=== PATIENT | female | born 1990 | race Caucasian/White ===

== ENCOUNTER → 2019-05-16 08:12 | Outpatient (CLI) | payer OTHER, SELFPAY ==
--- NOTE | ~2019-05-16 | US_ITS ---
US breast RT limited DATE: 05/16/2019 08:56 INDICATION: 12:00 right breast lump. Patient is 10.5 weeks t TECHNIQUE: Targeted ultrasound at the area of clinical complaint of right breast lump at 12:00 6 cm f rom the nipple COMPARISON: None FINDINGS: No suspicious mass, shadowing or any cyst or other significant sonographic finding is noted at 12:00 6 cm from the nipple at the area of clinical complaint. IMPRESSION: BI-RADS Category 1: Negative Recommendation: Routine mammographic screening beginning at age 40 unless there are earlier breast sy mptoms or physical findings Reviewed, dictated and finalized at [facility]. Reviewed, dictated and finalized at location [facility]. IMPRESSION: BI-RADS Category 1: Negative Recommendation: Routine mammographic screening beginning at age 40 unless there are earlier breast symptoms or physical findings
== END ==
PROVIDERS: Visit Provider Advanced Practice Midwife
DX: N63.10 Unspecified lump in the right breast, unspecified quadrant (principal)
CPT/HCPCS: 76642

== ENCOUNTER 2019-07-23 14:02 | Outpatient (CLI) | payer OTHER, SELFPAY ==
[2019-07-23 14:37] VITALS: BP 129/74; PULSE 115; RESP 16; TEMP 36.8
== END 2019-07-23 15:06 | disposition home or self-care (01) ==
LOC: ANHOBPP 14:47 → ANHOBOP 15:05
PROVIDERS: PCP Internal Medicine; Visit Provider Obstetrics & Gynecology
DX: O42.912 Preterm premature rupture of membranes, unspecified as to length of time between rupture and onset of labor, second trimester (principal); Z3A.20 20 weeks gestation of pregnancy
CPT/HCPCS: 99199

== ENCOUNTER 2019-08-25 11:39 | Observation (INO) | payer OTHER, SELFPAY ==
--- NOTE | ~2019-08-25 | US_ITS ---
EXAMINATION: US OB limited DATE: 08/25/2019 14:18 INDICATION: Vaginal bleeding during late second trimester of . TECHNIQUE: Real-time ultrasound of the pelvis was performed. The interpreting radiologist was not pre sent for the study. COMPARISON: None. FINDINGS: There is a single living fetus in vertex presentation. The placenta is anterior and not low-lying. N o evident subchorionic hematoma. heart rate is 152 beats per minute (bpm). The amniotic fluid v olume is subjectively normal. IMPRESSION: 1. Single living fetus in vertex presentation with heart rate of 152 bpm. 2. Normal anterior placenta with no evident subchorionic hematoma. Reviewed, dictated and finalized at location [facility]. IMPRESSION: 1. Single living fetus in vertex presentation with heart rate of 152 bpm . 2. Normal anterior placenta with no evident subchorionic hematoma.
--- NOTE | 2019-08-25 11:39 | OBADM ---
This patient, Do Jeong, admitted to the OB room OB Post 113 for observation. Patient/family oriented to hospital policies and general routines including ID bracelet, bed and alarms, visiting hours, pain management, procedures, bathroom and other care routines, personal items, smoking policy, room service/diet, and visiting hours. Patient/Family are encouraged to report perceived risks to care and to ask questions if they do not understand what they are told or what they should do.
[2019-08-25 12:05] VITALS: TEMP 37.4
[2019-08-25 12:15] VITALS: BMI 42.1
[2019-08-25 12:16] VITALS: BP 121/70; PULSE 94
[2019-08-25 12:31] VITALS: BP 126/73; PULSE 93
[2019-08-25 13:32] VITALS: BP 143/80; PULSE 89
[2019-08-25 13:46] VITALS: BP 148/82; PULSE 98
[2019-08-25] MEDS: NIFEdipine 10 MG CAPSULE PO ×2 (13:49→16:47)
[2019-08-25 15:53] VITALS: BP 124/72; PULSE 100
[2019-08-25 16:06] LABS: Add Urine Microscopic? YES; Appearance Urine Clear (Clear); Bacteria Urine 2+ /hpf; Bilirubin Urine Negative (Negative); Blood Urine Negative (Negative); Color Urine Straw (Yellow); Glucose Urine UA Negative (Negative); Ketones Urine 1+ mg/dL (Negative); Leukocyte Esterase Ur Negative LEU/UL (NEGATIVE); Nitrate Urine Negative (Negative); Protein Urine Negative (Negative); Specific Grav Ur 1.009 (1.001-1.035); Squamous Epithelial Cell Urine Occasional /hpf (Few); Urobilinogen Urine Negative mg/dL (<2.0); WBC Urine 0-3 /hpf (0-3)
--- NOTE | 2019-09-19 07:28 | P.PNOB_ITS ---
OB - Triage/Final Diagnosis Visit Information Date of evaluation: 08/25/19 Evaluation Laboratory results: Laboratory Tests 08/25/19 15:51 Urine Color Straw Urine Appearance Clear Urine pH 7.0 Ur Specific [place] 1.009 Urine Protein Negative Urine Glucose (UA) Negative Urine Ketones 1+ H Ur Blood (Man) Negative Urine Nitrate Negative Urine Bilirubin Negative Urine Urobilinogen Negative Ur Leukocyte Esterase Negative Urine WBC 0-3 Ur Squamous Epith Cells Occasional Urine Bacteria 2+ H Hyaline Casts 1-2 Final Diagnosis (1) Vaginal bleeding during , antepartum: Code(s): O46.90 - Antepartum hemorrhage, unspecified, unspecified trimester Status: Acute
== END 2019-08-25 18:20 | disposition home or self-care (01) ==
PROVIDERS: Admitting Provider Obstetrics & Gynecology; PCP Internal Medicine; Visit Provider Obstetrics & Gynecology
DX: O46.92 Antepartum hemorrhage, unspecified, second trimester (principal); Z3A.24 24 weeks gestation of pregnancy
CPT/HCPCS: 76815; 81001; 87086; A9270; G0378; G0379

== ENCOUNTER 2019-09-13 20:39 | Observation (INO) | payer OTHER, SELFPAY ==
[2019-09-13] VITALS (9 sets, daily range): BP systolic 136–141; BP diastolic 71–85; PULSE 100–120; O2SAT 99; BMI 42.1
--- NOTE | ~2019-09-13 | US_ITS ---
EXAMINATION: US OB limited DATE: 09/13/2019 22:16 INDICATION: Vaginal bleeding during second trimester TECHNIQUE: Real-time ultrasound of the pelvis was performed. The interpreting radiologist was not pre sent for the study. COMPARISON: 08/25/2019 FINDINGS: There is a single living fetus in vertex presentation. The placenta is anterior and 11.2 cm from the internal cervical os. There is a hypoechoic area along the inferior margin of the placenta which has an appearance suggestive of a venous marquez. cardiac activity and movement are no simone. heart rate is 159 beats per minute (bpm). The amniotic fluid index is 15.5 cm which is nor mal. IMPRESSION: 1. Single living fetus in vertex presentation. 2. Normal amniotic fluid index. 3. Hypoechoic area along the inferior margin of the placenta, likely a venous marquez. Reviewed, dictated and finalized at location [facility]. IMPRESSION: 1. Single living fetus in vertex presentation. 2. Normal amniotic fluid index. 3. Hypoechoic area along the inferior margin of the placenta, likely a venous l heron.
[2019-09-13 22:10] LABS: Basophils Percent Auto 0.2 % (0.2-1.2); Eosinophils Absolute Auto 0.1 K/mm3 (0-0.3); Eosinophils Percent Auto 0.7 % (0-4.4); Hematocrit 36.3 % (37.0-47.0); Hemoglobin 12.5 g/dL (12.0-15.0); Immature Granulocyte Absolute 0.14 K/mm3 (0.00-0.031); Immature Granulocyte Percent A 1.1 % (0-0.5); Lymphocytes Absolute Auto 1.86 K/mm3 (0.9-3.2); Lymphocytes Percent Auto 14.9 % (18.3-44.2); Mean Corpuscular HGB Conc 34.4 g/dl (32-36); Mean Corpuscular Hemoglobin 30.8 pg (26-34); Mean Corpuscular Volume 89.4 fl (80-100); Mean Platelet Volume 9.6 fl (7.4-10.4); Monocytes Absolute Auto 0.9 K/mm3 (0.1-0.6); Monocytes Percent Auto 7.1 % (2.6-8.5); Neutrophils Absolute Auto 9.5 K/mm3 (1.3-6.7); Platelet Count Result 308 k/mm3 (150-375); Red Blood Count 4.06 M/mm3 (4.2-5.4); Red Cell Distribution Width 13.6 % (11.5-14.5); White Blood Count 12.5 K/mm3 (4.5-10.0)
[2019-09-13 22:14] LABS: Add Urine Microscopic? YES; Appearance Urine Clear (Clear); Bacteria Urine Trace /hpf; Bilirubin Urine Negative (Negative); Blood Urine 1+ (Negative); Color Urine Colorless (Yellow); Glucose Urine UA Negative (Negative); Ketones Urine Negative (Negative); Leukocyte Esterase Ur Negative LEU/UL (NEGATIVE); Nitrate Urine Negative (Negative); Protein Urine Negative (Negative); Squamous Epithelial Cell Urine Occasional /hpf (Few); Urobilinogen Urine Negative mg/dL (<2.0); WBC Urine 0-3 /hpf (0-3)
[2019-09-13 22:17] LABS: Specific Grav Ur 1.004 (1.001-1.035)
[2019-09-13 22:22] LABS: Alanine Aminotransferase 37 U/L (4-35); Albumin Level 3.4 g/dL (3.5-5.1); Alkaline Phosphatase 79 U/L (38-126); Anion Gap 11.4 mmol/L (7-16); Aspartate Amino Transferase 29 U/L (14-36); Bilirubin,Total 0.2 mg/dL (0.2-1.3); Blood Urea Nitrogen 7 mg/dL (7-17); Calcium 8.8 mg/dL (8.4-10.2); Carbon Dioxide 23 mmol/L (22-30); Chloride 104 mmol/L (98-107); Estimated Glomerular Filt Rate > 60; Glucose 128 mg/dL (65-105); Potassium 3.4 mmol/L (3.4-5.0); Sodium 135 mmol/L (137-145); Uric Acid 4.3 mg/dL (2.5-7.5)
[2019-09-13 22:23] LABS: Creatinine Urine 12.1 mg/dL; Total Protein Urine Random 13 mg/dL
[2019-09-13] MEDS: BETAMETHASONE SOD PHOS/ACETATE 30 MG/5 ML VIAL 12 MG IM (22:30)
[2019-09-13 22:42] LABS: Fetal Fibronectin Negative
--- NOTE | 2019-09-16 21:45 | PM.OBTRLD ---
OB - Triage/Final Diagnosis Evaluation Laboratory results: Laboratory Tests 09/13/19 09/13/19 09/13/19 21:39 21:39 21:39 WBC 12.5 H RBC 4.06 L Hgb 12.5 Hct 36.3 L MCV 89.4 MCH 30.8 MCHC 34.4 RDW 13.6 Plt Count 308 MPV 9.6 Immature Gran % (Auto) 1.1 H Neut % (Auto) 76.0 H Lymph % (Auto) 14.9 L [place] % (Auto) 7.1 Eos % (Auto) 0.7 Baso % (Auto) 0.2 Lymph # (Auto) 1.86 [place] # (Auto) 0.9 H Eos # (Auto) 0.1 Baso # (Auto) 0.0 Abs Immat Gran (auto) 0.14 H Absolute Neuts (auto) 9.5 H Absolute Nucleated RBC 0.0 Nucleated RBC % 0.0 Sodium Potassium Chloride Carbon Dioxide Anion Gap BUN Creatinine Estim Creat Clear Calc Estimated GFR Glucose Uric Acid Calcium Total Bilirubin AST ALT Alkaline Phosphatase Total Protein Albumin Urine Color Colorless Urine Appearance Clear Urine pH 7.0 Ur Specific [place] 1.004 Urine Protein Negative Urine Glucose (UA) Negative Urine Ketones Negative Ur Blood (Man) 1+ H Urine Nitrate Negative Urine Bilirubin Negative Urine Urobilinogen Negative Ur Leukocyte Esterase Negative Urine WBC 0-3 Ur Squamous Epith Cells Occasional Urine Bacteria Trace U Random Total Protein 13 Urine Creatinine 12.1 Fibronectin 09/13/19 09/13/19 21:39 21:45 WBC RBC Hgb Hct MCV MCH MCHC RDW Plt Count MPV Immature Gran % (Auto) Neut % (Auto) Lymph % (Auto) [place] % (Auto) Eos % (Auto) Baso % (Auto) Lymph # (Auto) [place] # (Auto) Eos # (Auto) Baso # (Auto) Abs Immat Gran (auto) Absolute Neuts (auto) Absolute Nucleated RBC Nucleated RBC % Sodium 135 L Potassium 3.4 Chloride 104 Carbon Dioxide 23 Anion Gap 11.4 BUN 7 Creatinine 0.40 L Estim Creat Clear Calc Not Reportable Estimated GFR > 60 Glucose 128 H Uric Acid 4.3 Calcium 8.8 Total Bilirubin 0.2 AST 29 ALT 37 H Alkaline Phosphatase 79 Total Protein 6.0 L Albumin 3.4 L Urine Color Urine Appearance Urine pH Ur Specific [place] Urine Protein Urine Glucose (UA) Urine Ketones Ur Blood (Man) Urine Nitrate Urine Bilirubin Urine Urobilinogen Ur Leukocyte Esterase Urine WBC Ur Squamous Epith Cells Urine Bacteria U Random Total Protein Urine Creatinine Fibronectin Negative Final Diagnosis (1) Vaginal bleeding during , antepartum: Code(s): O46.90 - Antepartum hemorrhage, unspecified, unspecified trimester Status: Acute
== END 2019-09-13 23:00 | disposition home or self-care (01) ==
PROVIDERS: Advanced Practice Midwife; Admitting Provider Obstetrics & Gynecology; PCP Internal Medicine; Visit Provider Obstetrics & Gynecology
DX: O46.92 Antepartum hemorrhage, unspecified, second trimester (principal); Z3A.27 27 weeks gestation of pregnancy
CPT/HCPCS: 36415; 76815; 80053; 81001; 82570; 82731; 84156; 84550; 85025; 87086; 96372; G0378; G0379; J0702

== ENCOUNTER 2019-09-14 21:55 | Outpatient (CLI) | payer OTHER, SELFPAY ==
[2019-09-14] MEDS: BETAMETHASONE SOD PHOS/ACETATE 30 MG/5 ML VIAL 12 MG IM (22:15)
== END 2019-09-14 22:20 | disposition home or self-care (01) ==
LOC: ANHOBOP 22:00 → ANHLDR 22:03
PROVIDERS: Family Provider Obstetrics & Gynecology; PCP Internal Medicine; Visit Provider Obstetrics & Gynecology
DX: Z34.90 Encounter for supervision of normal pregnancy, unspecified, unspecified trimester (principal); Z3A.00 Weeks of gestation of pregnancy not specified
CPT/HCPCS: 96372; 99199; J0702

== ENCOUNTER 2019-10-22 20:04 | Observation (INO) | payer OTHER, SELFPAY ==
[2019-10-22] VITALS (42 sets, daily range): BP systolic 101–116; BP diastolic 62–63; PULSE 86–113; TEMP 36.4; O2SAT 97–100
--- NOTE | 2019-10-22 20:28 | OBADM ---
This patient, Do Jeong, admitted to the OB room OB Post 117 for observation. Patient/family oriented to hospital policies and general routines including ID bracelet, bed and alarms, visiting hours, pain management, procedures, bathroom and other care routines, personal items, smoking policy, room service/diet, and visiting hours. Patient/Family are encouraged to report perceived risks to care and to ask questions if they do not understand what they are told or what they should do.
--- NOTE | 2019-11-13 08:15 | PM.OBTRLD ---
OB - Triage/Final Diagnosis Final Diagnosis (1) Vaginal bleeding during , antepartum: Code(s): O46.90 - Antepartum hemorrhage, unspecified, unspecified trimester Status: Acute
== END 2019-10-23 00:30 | disposition home or self-care (01) ==
PROVIDERS: Admitting Provider Obstetrics & Gynecology; PCP Internal Medicine; Visit Provider Obstetrics & Gynecology
DX: O46.93 Antepartum hemorrhage, unspecified, third trimester (principal); Z3A.33 33 weeks gestation of pregnancy
CPT/HCPCS: G0378; G0379

== ENCOUNTER 2019-10-23 16:59 | Observation (INO) | payer OTHER, SELFPAY ==
[2019-10-23] VITALS (8 sets, daily range): BP systolic 97–137; BP diastolic 76–92; PULSE 89–104; RESP 18; TEMP 36.7
[2019-10-23 18:13] LABS: Basophils Percent Auto 0.2 % (0.2-1.2); Eosinophils Absolute Auto 0.1 K/mm3 (0-0.3); Eosinophils Percent Auto 0.7 % (0-4.4); Hematocrit 36.7 % (37.0-47.0); Immature Granulocyte Absolute 0.08 K/mm3 (0.00-0.031); Immature Granulocyte Percent A 0.7 % (0-0.5); Lymphocytes Absolute Auto 1.95 K/mm3 (0.9-3.2); Lymphocytes Percent Auto 16.2 % (18.3-44.2); Mean Corpuscular HGB Conc 35.4 g/dl (32-36); Mean Corpuscular Hemoglobin 30.7 pg (26-34); Mean Corpuscular Volume 86.8 fl (80-100); Mean Platelet Volume 9.7 fl (7.4-10.4); Monocytes Percent Auto 7.9 % (2.6-8.5); Neutrophils Percent Auto 74.3 % (45.5-73.1); Platelet Count Result 308 k/mm3 (150-375); Red Blood Count 4.23 M/mm3 (4.2-5.4); Red Cell Distribution Width 13.3 % (11.5-14.5)
[2019-10-23 18:23] LABS: Creatinine Urine 96.7 mg/dL; Total Protein Urine Random 12 mg/dL
[2019-10-23 18:26] LABS: Alanine Aminotransferase 30 U/L (4-35); Albumin Level 3.2 g/dL (3.5-5.1); Alkaline Phosphatase 101 U/L (38-126); Anion Gap 6 mmol/L (8-16); Aspartate Amino Transferase 28 U/L (14-36); Bilirubin,Total 0.1 mg/dL (0.2-1.3); Blood Urea Nitrogen 6 mg/dL (7-17); Calcium 8.7 mg/dL (8.4-10.2); Carbon Dioxide 23 mmol/L (22-30); Chloride 105 mmol/L (98-107); Estimated Glomerular Filt Rate > 60; Glucose 85 mg/dL (65-105); Potassium 3.5 mmol/L (3.4-5.0); Sodium 134 mmol/L (137-145)
[2019-10-23 18:31] LABS: Add Urine Microscopic? YES; Appearance Urine Cloudy (Clear); Bacteria Urine 3+ /hpf; Bilirubin Urine Negative (Negative); Blood Urine Negative (Negative); Color Urine Yellow (Yellow); Glucose Urine UA Negative (Negative); Ketones Urine Negative (Negative); Leukocyte Esterase Ur Negative LEU/UL (NEGATIVE); Mucus Urine Rare /lpf; Nitrate Urine Negative (Negative); Protein Urine Negative (Negative); RBC Urine 0-2 /hpf (0-2); Specific Grav Ur 1.017 (1.001-1.035); Squamous Epithelial Cell Urine Few /hpf (Few); Urobilinogen Urine Negative mg/dL (<2.0)
--- NOTE | 2019-10-23 21:24 | LDADM ---
This patient, Do Jeogn, was admitted to OB Post 117 on 10/23/19 at 16:59. Plans for labor, pain management and were discussed with patient. Patient/family oriented to hospital policies and general routines including ID bracelet, bed and alarms, visiting hours, pain management, procedures, bathroom and other care routines, personal items, smoking policy, room service/diet and guest tray routines, security routines, and visiting hours. Patient/Family are encouraged to report perceived risks to care and to ask questions if they do not understand what they are told or what they should do. See OBIX for further documentation.
--- NOTE | 2019-10-29 08:52 | PM.OBTRLD ---
OB - Triage/Final Diagnosis Visit Information Date of evaluation: 10/23/19 Reason for evaluation: threatened labor Evaluation Laboratory results: Laboratory Tests 10/23/19 10/23/19 10/23/19 17:55 17:55 17:55 WBC 12.0 H RBC 4.23 Hgb 13.0 Hct 36.7 L MCV 86.8 MCH 30.7 MCHC 35.4 RDW 13.3 Plt Count 308 MPV 9.7 Immature Gran % (Auto) 0.7 H Neut % (Auto) 74.3 H Lymph % (Auto) 16.2 L [place] % (Auto) 7.9 Eos % (Auto) 0.7 Baso % (Auto) 0.2 Lymph # (Auto) 1.95 [place] # (Auto) 1.0 H Eos # (Auto) 0.1 Baso # (Auto) 0.0 Abs Immat Gran (auto) 0.08 H Absolute Neuts (auto) 9.0 H Absolute Nucleated RBC 0.0 Nucleated RBC % 0.0 Sodium Potassium Chloride Carbon Dioxide Anion Gap BUN Creatinine Estim Creat Clear Calc Estimated GFR Glucose Uric Acid Calcium Total Bilirubin AST ALT Alkaline Phosphatase Total Protein Albumin Urine Color Yellow Urine Appearance Cloudy H Urine pH 6.0 Ur Specific [place] 1.017 Urine Protein Negative Urine Glucose (UA) Negative Urine Ketones Negative Ur Blood (Man) Negative Urine Nitrate Negative Urine Bilirubin Negative Urine Urobilinogen Negative Ur Leukocyte Esterase Negative Urine RBC 0-2 Urine WBC 7-9 H Ur Squamous Epith Cells Few Urine Bacteria 3+ H Hyaline Casts 1-2 Urine Mucus Rare U Random Total Protein 12 Urine Creatinine 96.7 10/23/19 17:55 WBC RBC Hgb Hct MCV MCH MCHC RDW Plt Count MPV Immature Gran % (Auto) Neut % (Auto) Lymph % (Auto) [place] % (Auto) Eos % (Auto) Baso % (Auto) Lymph # (Auto) [place] # (Auto) Eos # (Auto) Baso # (Auto) Abs Immat Gran (auto) Absolute Neuts (auto) Absolute Nucleated RBC Nucleated RBC % Sodium 134 L Potassium 3.5 Chloride 105 Carbon Dioxide 23 Anion Gap 6 L BUN 6 L Creatinine 0.40 L Estim Creat Clear Calc Not Reportable Estimated GFR > 60 Glucose 85 Uric Acid 4.0 Calcium 8.7 Total Bilirubin 0.1 L AST 28 ALT 30 Alkaline Phosphatase 101 Total Protein 6.0 L Albumin 3.2 L Urine Color Urine Appearance Urine pH Ur Specific [place] Urine Protein Urine Glucose (UA) Urine Ketones Ur Blood (Man) Urine Nitrate Urine Bilirubin Urine Urobilinogen Ur Leukocyte Esterase Urine RBC Urine WBC Ur Squamous Epith Cells Urine Bacteria Hyaline Casts Urine Mucus U Random Total Protein Urine Creatinine
== END 2019-10-23 19:50 | disposition home or self-care (01) ==
PROVIDERS: Advanced Practice Midwife; Admitting Provider Obstetrics & Gynecology; PCP Internal Medicine; Visit Provider Obstetrics & Gynecology
DX: O47.03 False labor before 37 completed weeks of gestation, third trimester (principal); Z3A.33 33 weeks gestation of pregnancy
CPT/HCPCS: 36415; 80053; 81001; 82570; 84156; 84550; 85025; 87086; 87088; G0378; G0379

== ENCOUNTER 2019-11-19 19:03 | Outpatient (CLI) | payer OTHER, SELFPAY ==
[2019-11-19 19:45] LABS: Basophils Percent Auto 0.3 % (0.2-1.2); Eosinophils Absolute Auto 0.1 K/mm3 (0-0.3); Eosinophils Percent Auto 0.5 % (0-4.4); Hematocrit 37.7 % (37.0-47.0); Hemoglobin 12.8 g/dL (12.0-15.0); Immature Granulocyte Absolute 0.06 K/mm3 (0.00-0.031); Immature Granulocyte Percent A 0.5 % (0-0.5); Lymphocytes Absolute Auto 2.06 K/mm3 (0.9-3.2); Lymphocytes Percent Auto 17.8 % (18.3-44.2); Mean Corpuscular Hemoglobin 30.3 pg (26-34); Mean Corpuscular Volume 89.3 fl (80-100); Mean Platelet Volume 10.1 fl (7.4-10.4); Monocytes Absolute Auto 0.9 K/mm3 (0.1-0.6); Monocytes Percent Auto 7.6 % (2.6-8.5); Neutrophils Absolute Auto 8.5 K/mm3 (1.3-6.7); Neutrophils Percent Auto 73.3 % (45.5-73.1); Platelet Count Result 307 k/mm3 (150-375); Red Blood Count 4.22 M/mm3 (4.2-5.4); Red Cell Distribution Width 13.2 % (11.5-14.5); White Blood Count 11.6 K/mm3 (4.5-10.0)
[2019-11-19 19:53] LABS: Add Urine Microscopic? YES; Amorphous Sediment Urine Few; Appearance Urine Cloudy (Clear); Bacteria Urine 2+ /hpf; Bilirubin Urine Negative (Negative); Blood Urine Negative (Negative); Color Urine Yellow (Yellow); Glucose Urine UA Negative (Negative); Ketones Urine Negative (Negative); Leukocyte Esterase Ur Negative LEU/UL (NEGATIVE); Mucus Urine Rare /lpf; Nitrate Urine Negative (Negative); Protein Urine Negative (Negative); RBC Urine 0-2 /hpf (0-2); Specific Grav Ur 1.017 (1.001-1.035); Squamous Epithelial Cell Urine Occasional /hpf (Few); Urobilinogen Urine Negative mg/dL (<2.0); WBC Urine 0-3 /hpf (0-3)
[2019-11-19 19:58] LABS: Total Protein Urine Random 8 mg/dL
[2019-11-19 19:59] LABS: Alanine Aminotransferase 19 U/L (4-35); Albumin Level 3.1 g/dL (3.5-5.1); Alkaline Phosphatase 107 U/L (38-126); Anion Gap 5 mmol/L (8-16); Aspartate Amino Transferase 26 U/L (14-36); Bilirubin,Total 0.3 mg/dL (0.2-1.3); Blood Urea Nitrogen 10 mg/dL (7-17); Calcium 9.3 mg/dL (8.4-10.2); Carbon Dioxide 24 mmol/L (22-30); Chloride 106 mmol/L (98-107); Estimated Glomerular Filt Rate > 60; Glucose 92 mg/dL (65-105); Sodium 135 mmol/L (137-145); Uric Acid 5.1 mg/dL (2.5-7.5)
[2019-11-19 20:00] VITALS: BP 119/70; PULSE 95
[2019-11-19 21:21] VITALS: TEMP 36.8
== END 2019-11-19 19:04 | disposition home or self-care (01) ==
PROVIDERS: Advanced Practice Midwife; PCP Internal Medicine; Visit Provider Obstetrics & Gynecology
DX: O13.9 Gestational [pregnancy-induced] hypertension without significant proteinuria, unspecified trimester (principal); Z3A.00 Weeks of gestation of pregnancy not specified
CPT/HCPCS: 36415; 59025; 80053; 81001; 82570; 84156; 84550; 85025; 87086; 87088

== ENCOUNTER 2019-11-21 21:39 | Inpatient (IN) | payer OTHER, SELFPAY ==
[2019-11-21] VITALS (14 sets, daily range): BP systolic 119–146; BP diastolic 49–92; PULSE 103–120; TEMP 36.8; O2SAT 97–98
[2019-11-21 22:30] LABS: Basophils Percent Auto 0.2 % (0.2-1.2); Eosinophils Absolute Auto 0.1 K/mm3 (0-0.3); Eosinophils Percent Auto 0.5 % (0-4.4); Hematocrit 37.4 % (37.0-47.0); Hemoglobin 12.9 g/dL (12.0-15.0); Immature Granulocyte Absolute 0.08 K/mm3 (0.00-0.031); Immature Granulocyte Percent A 0.6 % (0-0.5); Lymphocytes Absolute Auto 2.11 K/mm3 (0.9-3.2); Lymphocytes Percent Auto 15.9 % (18.3-44.2); Mean Corpuscular HGB Conc 34.5 g/dl (32-36); Mean Corpuscular Hemoglobin 30.8 pg (26-34); Mean Corpuscular Volume 89.3 fl (80-100); Monocytes Absolute Auto 0.8 K/mm3 (0.1-0.6); Monocytes Percent Auto 5.9 % (2.6-8.5); Neutrophils Absolute Auto 10.3 K/mm3 (1.3-6.7); Neutrophils Percent Auto 76.9 % (45.5-73.1); Platelet Count Result 312 k/mm3 (150-375); Red Blood Count 4.19 M/mm3 (4.2-5.4); Red Cell Distribution Width 13.1 % (11.5-14.5); White Blood Count 13.3 K/mm3 (4.5-10.0)
[2019-11-21] MEDS: LACTATED RINGERS 1,000 ML 125 ML IV CONT (22:38)
[2019-11-21] MEDS: OXYTOCIN 30 UNITS/NS 500 ML 30 UNITS/500 ML BAG 6 UNITS IV CONT (22:39)
[2019-11-22] VITALS (328 sets, daily range): BP systolic 77–150; BP diastolic 22–107; PULSE 84–169; RESP 16; TEMP 36.2–37.6; O2SAT 95–100; BMI 45.7
[2019-11-22 00:10] LABS: Alanine Aminotransferase 21 U/L (4-35); Albumin Level 3.1 g/dL (3.5-5.1); Alkaline Phosphatase 119 U/L (38-126); Anion Gap 10 mmol/L (8-16); Aspartate Amino Transferase 28 U/L (14-36); Bilirubin,Total 0.3 mg/dL (0.2-1.3); Blood Urea Nitrogen 7 mg/dL (7-17); Calcium 8.9 mg/dL (8.4-10.2); Carbon Dioxide 22 mmol/L (22-30); Chloride 104 mmol/L (98-107); Estimated Glomerular Filt Rate > 60; Glucose 185 mg/dL (65-105); Sodium 136 mmol/L (137-145); Uric Acid 5.4 mg/dL (2.5-7.5)
--- NOTE | 2019-11-22 04:07 | PC.NURSE ---
ALL DOCUMENTATION DONE ON ARRIVAL UNTIL 404 DONE PER Joni MENDEZ RN. WILLIAM FARLEY RN
[2019-11-22] MEDS: ONDANSETRON INJ 4 MG/2 ML VIAL IV PUSH ×3 (04:49→20:53)
--- NOTE | 2019-11-22 06:06 | WPDANESEPP ---
Anes - Eval Pre Procedure Procedure: labor epidural Date/Time: 11/22/19 06:06 Surgeon: nikole Pre Op Diagnosis: IOL Patient Data Age: 29 Gender: F Height: Weight: Last Vital Signs Temp 36.8 C 11/21/19 22:17 Pulse 88 11/22/19 06:00 BP 121/81 11/22/19 06:00 Pulse Ox 99 11/22/19 06:03 Allergies Allergy/AdvReac Type Severity Reaction Status Date / Time No Known Allergies Allergy Verified 11/11/19 14:26 Home Medications Medication Instructions Recorded Confirmed Type aspirin 81 mg tablet,delayed 81 mg PO DAILY 02/08/19 11/19/19 History release sertraline 50 mg tablet 50 mg PO DAILY 02/08/19 11/19/19 History albuterol sulfate 90 mcg/actuation 2 puff INHALATION Q4-6H PRN #25.5 03/07/19 11/19/19 Rx aerosol inhaler gm PNV cmb#95-ferrous fumarate-FA 1 tablet PO DAILY 07/23/19 11/19/19 History [] Vitamin D3 100 mcg PO DAILY 11/11/19 11/19/19 History Zyrtec 10 mg PO DAILY 11/11/19 11/19/19 History Laboratory Tests 11/21/19 11/21/19 11/21/19 22:19 22:19 22:19 WBC 13.3 K/mm3 H K/mm3 (4.5-10.0) RBC 4.19 M/mm3 L M/mm3 (4.2-5.4) Hgb 12.9 g/dL g/dL (12.0-15.0) Hct 37.4 % % (37.0-47.0) MCV 89.3 fl fl (80-100) MCH 30.8 pg pg (26-34) MCHC 34.5 g/dl g/dl (32-36) RDW 13.1 % % (11.5-14.5) Plt Count 312 k/mm3 k/mm3 (150-375) MPV 10.0 fl fl (7.4-10.4) Immature Gran % (Auto) 0.6 % H % (0-0.5) Neut % (Auto) 76.9 % H % (45.5-73.1) Lymph % (Auto) 15.9 % L % (18.3-44.2) [place] % (Auto) 5.9 % % (2.6-8.5) Eos % (Auto) 0.5 % % (0-4.4) Baso % (Auto) 0.2 % % (0.2-1.2) Lymph # (Auto) 2.11 K/mm3 K/mm3 (0.9-3.2) [place] # (Auto) 0.8 K/mm3 H K/mm3 (0.1-0.6) Eos # (Auto) 0.1 K/mm3 K/mm3 (0-0.3) Baso # (Auto) 0.0 K/mm3 K/mm3 (0.0-0.1) Abs Immat Gran (auto) 0.08 K/mm3 H K/mm3 (0.00-0.031) Absolute Neuts (auto) 10.3 K/mm3 H K/mm3 (1.3-6.7) Absolute Nucleated RBC 0.0 K/mm3 K/mm3 (0.0-0.012) Nucleated RBC % 0.0 % % (0.0-0.2) Sodium Potassium Chloride Carbon Dioxide Anion Gap BUN Creatinine Estim Creat Clear Calc Estimated GFR Glucose Uric Acid Calcium Total Bilirubin AST ALT Alkaline Phosphatase Total Protein Albumin RPR Pending Blood Type O Positive Antibody Screen Negative 11/21/19 23:52 WBC RBC Hgb Hct MCV MCH MCHC RDW Plt Count MPV Immature Gran % (Auto) Neut % (Auto) Lymph % (Auto) [place] % (Auto) Eos % (Auto) Baso % (Auto) Lymph # (Auto) [place] # (Auto) Eos # (Auto) Baso # (Auto) Abs Immat Gran (auto) Absolute Neuts (auto) Absolute Nucleated RBC Nucleated RBC % Sodium 136 mmol/L L mmol/L (137-145) Potassium 4.0 mmol/L mmol/L (3.4-5.0) Chloride 104 mmol/L mmol/L (98-107) Carbon Dioxide 22 mmol/L mmol/L (22-30) Anion Gap 10 mmol/L mmol/L (8-16) BUN 7 mg/dL mg/dL (7-17) Creatinine 0.50 mg/dL L mg/dL (0.7-1.0) Estim Creat Clear Calc Not Reportable Estimated GFR > 60 (59 - ) Glucose 185 mg/dL H mg/dL (65-105) Uric Acid 5.4 mg/dL mg/dL (2.5-7.5) Calcium 8.9 mg/dL mg/dL (8.4-10.2) Total Bilirubin 0.3 mg/dL mg/dL (0.2-1.3) AST 28 U/L U/L (14-36) ALT 21 U/L U/L (4-35) Alkaline Phosphatase 119 U/L U/L (38-126) Total Protein 6.0 g/dL L g/dL (6.3-8.2) Albumin 3.1 g/dL L g/dL (3.5-5.1) RPR Blood Type Antibo
[2019-11-22 07:21] LABS: Rapid Plasma Reagin Non-Reactive (NonReactive)
--- NOTE | 2019-11-22 07:43 | WPDOBADMIT ---
Obstetrics - Admit Note Admission Note: 29y/o @ 37w4d here for induction of labor due to recent diagnosis of gestational hypertension. AROM small amount of clear odorless fluid. record reviewed. No pertinent additions to the history and/or any subsequent changes in the physical findings that are not consistent with the expected course of the were found. Additions to the history and/or subsequent changes in the physical findings follow. None.
[2019-11-22] MEDS: fentaNYL CITRATE INJ (*CRX) 100 MCG/2 ML VIAL IV PUSH (10:10)
[2019-11-22] MEDS: LACTATED RINGERS 1,000 ML 125 ML IV CONT ×5 (10:13→21:35)
--- NOTE | 2019-11-22 14:29 | WPDANLDNPN2 ---
Anes-Prog Note L&D-Neuraxial Date/Time: 11/22/19 14:29 Comments: Consulted for patient complaints of: Unilateral headache, nausea/vomiting, bilateral tingling in 4th and 5th digits which was worse on the left side. This occurred approximately 20 minutes following epidural placement. Epidural paused. 1 hour following epidural pause, patient only has complaints of mild left sided headache. Epidural restarted at 2mL/hr. 20 minutes following restart, patient complaining of similar symptoms. After discussion with patient, patient elected to have epidural removed and replaced.
--- NOTE | 2019-11-22 18:13 | PM.IMHP ---
H&P: HPI History of Present Illness Date/Time: 11/22/19 18:13 . Chief complaint: IOL Narrative: Do Jeong is a 29 year old female @ 37w4d here for induction of labor d/t gestational hypertension. Review of Systems Review of Systems: All systems reviewed & are unremarkable except as noted in HPI and below PMFSH Past Medical History Medical History (Updated 11/22/19 @ 18:19 by Jeana Grimes CNM) History of hysteroscopy Patient undergoing in vitro fertilization Family History Family History Grandparent Hypertension Family history of type 2 diabetes mellitus Mother Hypertension Social History Social History Smoking status: Never smoker Second hand tobacco smoke exposure: No Alcohol intake: never Substance use: never Gender identity (if verbalized by the patient): Female Spiritual care concerns: No Meds Home Medications and Allergies Home Medications Medication Instructions Recorded Confirmed Type aspirin 81 mg tablet,delayed 81 mg PO DAILY 02/08/19 11/19/19 History release sertraline 50 mg tablet 50 mg PO DAILY 02/08/19 11/19/19 History albuterol sulfate 90 mcg/actuation 2 puff INHALATION Q4-6H PRN #25.5 03/07/19 11/19/19 Rx aerosol inhaler gm PNV cmb#95-ferrous fumarate-FA 1 tablet PO DAILY 07/23/19 11/19/19 History [] Vitamin D3 100 mcg PO DAILY 11/11/19 11/19/19 History Zyrtec 10 mg PO DAILY 11/11/19 11/19/19 History Allergies Allergy/AdvReac Type Severity Reaction Status Date / Time No Known Allergies Allergy Verified 11/11/19 14:26 Vital Signs Vital Signs - 24 hr 11/21/19 22:15 11/21/19 22:17 11/21/19 22:31 Temperature 98.2 F Pulse Rate 120 H 114 H Respiratory Rate Blood Pressure 146/92 H 119/73 Pulse Oximetry 11/21/19 22:45 11/21/19 23:00 11/21/19 23:15 Temperature Pulse Rate 111 H 107 H 106 H Respiratory Rate Blood Pressure 137/74 134/86 138/87 Pulse Oximetry 11/21/19 23:30 11/21/19 23:35 11/21/19 23:40 Temperature Pulse Rate 117 H Respiratory Rate Blood Pressure 134/64 Pulse Oximetry 98 98 11/21/19 23:45 11/21/19 23:47 11/21/19 23:50 Temperature Pulse Rate 108 H 105 H Respiratory Rate Blood Pressure 140/49 L 125/75 Pulse Oximetry 98 98 11/21/19 23:52 11/21/19 23:56 11/22/19 00:00 Temperature Pulse Rate 101 H Respiratory Rate Blood Pressure 134/76 Pulse Oximetry 98 97 11/22/19 00:01 11/22/19 00:06 11/22/19 00:10 Temperature Pulse Rate 104 H Respiratory Rate Blood Pressure 133/84 Pulse Oximetry 98 97 11/22/19 00:11 11/22/19 00:16 11/22/19 00:20 Temperature Pulse Rate 104 H Respiratory Rate Blood Pressure 129/72 Pulse Oximetry 99 97 11/22/19 00:21 11/22/19 00:26 11/22/19 00:30 Temperature Pulse Rate 103 H Respiratory Rate Blood Pressure 130/79 Pulse Oximetry 97 98 11/22/19 00:31 11/22/19 00:36 11/22/19 00:40 Temperature Pulse Rate 97 Respiratory Rate Blood Pressure 118/64 Pulse Oximetry 98 97 11/22/19 00:41 11/22/19 00:46 11/22/19 00:50 Temperature Pulse Rate 95 Respiratory Rate Blood Pressure 118/76 Pulse Oximetry 99 98 11/22/19 00:51 11/22/19 00:56 11/22/19 01:00 Temperature Pulse Rate 94 Respiratory Rate Blood Pressure 116/74 Pulse Oximetry 98 98 11/22/19 01:04 11/22/19 01:09 11/22/19 01:10 Temperature Pulse Rate 100 Respiratory Rate Blood Pressure 123/71 Pulse Oximetry 97 98 11/22/19 01:14 11/22/19 01:19 11/22/19 01:20 Temperature Pulse Rate 94 Respiratory Rate Blood Pressure 116/79 Pulse Oximetry 98 98 11/22/19 01:24 11/22/19 01:29 11/22/19 01:30 Temperature Pulse Rate 102 H Respiratory Rate Blood Pressure 106/67 Pulse Oximetry 99 99 11/22/19 01:34 11/22/19 01:39
--- NOTE | 2019-11-22 18:38 | PM.OBPNLAB ---
Pain Control Date/time seen: 11/22/19 18:38 VSS and afebrile Pt comfortable Contractions regular FHR catetory 1 Plan: Pt has made little change however they were unable to manage well d/t problems with epidural. Since mom and baby are both stable we can continue to labor. Will reevauate in 2-3 hours. Pt happy with plan and agrees.
[2019-11-22] MEDS: OXYTOCIN 30 UNITS/NS 500 ML 30 UNITS/500 ML BAG 6 UNITS IV CONT (20:18)
[2019-11-23] VITALS (126 sets, daily range): BP systolic 95–139; BP diastolic 36–97; PULSE 92–183; RESP 18; TEMP 36.2–38.1; O2SAT 95–100
[2019-11-23] MEDS: AMPICILLIN 2 GM/NS 100 ML 2 GM/100 ML BAG IVPB (01:00)
[2019-11-23] MEDS: ONDANSETRON INJ 4 MG/2 ML VIAL IV PUSH (05:31)
[2019-11-23] MEDS: AMPICILLIN 1 GM/NS 50 ML 1 GM/50 ML BAG IVPB (05:31)
[2019-11-23] MEDS: LACTATED RINGERS 1,000 ML 125 ML IV CONT (06:22)
[2019-11-23] MEDS: SODIUM CHLORIDE 0.9% IV 300 ML 600 ML I-UTERINE (06:30)
[2019-11-23] MEDS: OXYTOCIN 30 UNITS/NS 500 ML 30 UNITS/500 ML BAG 125 UNITS IV CONT (09:05)
--- NOTE | 2019-11-23 09:15 | P.PCNOB_ITS ---
OB - Delivery Note Procedure Delivery date: 11/23/19 events: Induced HTN Intrapartal events: None Induction method: none Delivery monitor: external FHT, external uterine and internal uterine Route of delivery: Laceration description: Perineal - 2nd Degree Estimated blood loss (mL): 321 Anesthesia type: Local Sebastian Baby Date of : 11/23/19 Time of : 08:27 Weeks of gestation at delivery: 37 gender: Male Weight (pounds): 6 Weight (ounces): 8 presentation: vertex position: Left Occiput Anterior Placenta delivery description: Spontaneous (At 30 minutes manual removal started however placenta was already loose and delivered spontaneously just minutes later.) score one minute: 5 score five minutes: 8
[2019-11-23] MEDS: IBUPROFEN 600 MG TABLET PO (10:13)
--- NOTE | 2019-11-23 11:47 | PC.NURSE ---
Patient transferred to post room #286 via [id number]. Support person present. Oriented to unit, room, information board, rooming in, admission packet and security measures. Patient verbalizes understanding.
[2019-11-24] MEDS: ACETAMINOPHEN 325 MG TABLET 650 MG PO ×2 (00:39→16:39)
[2019-11-24] MEDS: IBUPROFEN 600 MG TABLET PO ×2 (00:39→16:39)
[2019-11-24 05:21] LABS: Hematocrit 25.6 % (37.0-47.0); Hemoglobin 8.5 g/dL (12.0-15.0)
--- NOTE | 2019-11-24 07:32 | P.PNOB_ITS ---
OB - PN: Subj Subjective Date/time seen: 11/24/19 07:32 Patient comments: no complaints baby status: doing well [place] feeding status: exclusively breast feeding OB - PN: Obj Data Labs CBC & Chem 7: 11/24/19 05:05 11/21/19 23:52 Labs: Laboratory Results - last 24 hr 11/24/19 05:05 Hgb 8.5 L D Hct 25.6 L OB - PN A/P Plan day: 1 Plan: routine care Time Spent With Patient Time: Total time spent is greater than 50% in coordination of care (as documented) at patient's floor/unit and/or counseling patient: Exam Const: General: comfortable Resp: Effort & Inspection: normal respiratory effort Psych: Appearance: grossly normal Affect: normal affect Attitude: cooperative Judgement: Good judgement present (Psych)
[2019-11-24 08:05] VITALS: BP 127/77; PULSE 97; RESP 18; TEMP 36.5; O2SAT 97
--- NOTE | 2019-11-24 08:18 | WPDANLDPN2 ---
Anes-Prog Note L&D Date/Time: 11/24/19 08:18 Comfortable throughout: labor and delivery Neuraxial method: epidural Epidural/Spinal procedure site: clean & non-tender Neuro status: Neuro function grossly intact. Cardiovascular status: normal Respiratory status: normal Airway patency: baseline Mental status: baseline Post-Op hydration status: normal Vital Signs: Last Vital Signs Temp 36.5 C 11/23/19 20:15 Pulse 105 H 11/23/19 20:15 Resp 18 11/23/19 20:15 BP 112/70 11/23/19 20:15 Pulse Ox 100 11/23/19 20:15 Pain score (VAS): 1 Post-procedural complaints: none Patient feedback: Patient satisfied with anesthetic care.
[2019-11-24] MEDS: POLYSACCHARIDE IRON COMPLEX 150 MG CAPSULE PO ×2 (08:43→16:39)
[2019-11-24] MEDS: MULTIVIT/MIN/PREN/FOL AC/IRON TABLET 1 TAB PO (08:43)
[2019-11-24] MEDS: DOCUSATE SODIUM 100 MG CAPSULE PO ×2 (08:43→16:39)
[2019-11-24 19:20] VITALS: BP 133/82; PULSE 109; RESP 18; TEMP 36.7; O2SAT 100
--- NOTE | 2019-11-25 08:22 | P.PNOB_ITS ---
OB - PN: Subj Subjective Date/time seen: 11/25/19 08:22 Patient comments: no complaints baby status: doing well OB - PN: Obj Data Labs CBC & Chem 7: 11/24/19 05:05 11/21/19 23:52 OB - PN A/P Plan day: 2 Plan: discharge home Time Spent With Patient Time: Total time spent is greater than 50% in coordination of care (as documented) at patient's floor/unit and/or counseling patient: Exam 2 Const: General: comfortable Resp: Effort & Inspection: normal respiratory effort Psych: Appearance: grossly normal Affect: normal affect Attitude: cooperative Judgement: Good judgement present (Psych)
[2019-11-25 08:30] VITALS: BP 137/89; PULSE 102; RESP 12; TEMP 36.8; O2SAT 99
[2019-11-25] MEDS: MULTIVIT/MIN/PREN/FOL AC/IRON TABLET 1 TAB PO (08:42)
[2019-11-25] MEDS: DOCUSATE SODIUM 100 MG CAPSULE PO (08:42)
[2019-11-25] MEDS: POLYSACCHARIDE IRON COMPLEX 150 MG CAPSULE PO (08:42)
--- NOTE | 2019-11-25 10:11 | PC.NURSE ---
Patient viewed the discharge video Mother & Baby Care, The First Two Weeks . Patient was given the opportunity and encouraged to ask questions. Patient verbalized understanding of information shared and has been given the mother/baby guide for home reference.
[2019-11-27 09:23] VITALS: BP 135/75; PULSE 91; RESP 20; O2SAT 99
--- NOTE | 2019-12-21 20:18 | PM.OBDSVD ---
DS: Admitting Diagnosis Admitting Diagnosis Admitting Diagnosis: IOL OB - DS: Summary OB Procedures : None OB Procedures Intrapartum: Spontaneous Vag Delivery OB Procedures: : None Time Spent with Patient Time attestation: Total time spent providing and/or coordinating discharge services: DS: Data Data Completed and Pending Completed studies during hospitalization: Pending at discharge 11/23/19 09:22 Surgical [PTH] Routine Discharge Plan Discharge Attending physician on discharge: Ricarda Gonzales Consulting providers: Jeana Grimes ; Taryn Ford Discharging Clinician: Taryn Ford Patient Disposition: Home, Self-Care Activity: pelvic rest Diet: regular Discharge Instructions: Education: Mom and Baby Guide Given to: Mother Follow-Up: Call your delivering provider's office for an appointment to be seen in: 1 Week Mom and baby should come to the [facility] for the follow-up appointment. Appointment Date/Time: November 27, 2019 at 9:00 am What to expect at your follow-up visit: Blood Pressure Check Physical Assessment Call [phone] if you are unable to keep your appointment time. BREAST CARE: * Wear a snug supportive bra. * For engorgement discomfort: Breast Feeding: * Apply warm moist washcloths * Express milk as needed to relieve engorgement * Wear loose clothing * For sore nipples: * Identify correct latch-on * Apply warm moist washcloths before and after nursing * Air dry nipples after nursing * May apply Lansinoh cream to nipples EPISIOTOMY/PERINEAL CARE: * Until bleeding stops, use your tano bottle after urinating * Change your pad frequently throughout the day * You may take sitz baths several times a day (fill your bathtub with warm water and soak for 20 minutes.) Do NOT bathe in the water * No tub baths until seen by your physician - You may shower ACTIVITY: * Rest as much as possible. * Do not exercise or lift anything heavier than your baby (such as laundry or other children.) * Avoid stairs or driving as much as possible. * Do not put anything into the vagina. No douching, tampons, or sexual activity until seen by physician. NOTIFY PHYSICIAN IF YOU HAVE ANY QUESTIONS OR IF ANY OF THE FOLLOWING SYMPTOMS OCCUR: * If your episiotomy or incision becomes red, swollen, or more painful than what you have experienced in the hospital. * If your vaginal bleeding becomes foul smelling. * If your vaginal bleeding becomes more heavy than a period or if your bleeding changes from pink to bright red. However, you may pass an occasional walnut-sized clot once or twice for the first week . * If you experience a sharp, shooting pain in you calves. * If you discover a hard, reddened area on your breast or if you experience flu-like symptoms. DIET: * Eat regular, well-balanced meals. * Drink plenty of fluids daily. If , drink to thirst. Stand Alone Forms: General Discharge Information Follow-up/Referrals: Jeana Grimes CNM [Certified Nurse [employer] Pump Station Operator] - 4 Weeks Discharge Medications: Continued sertraline 50 mg tablet 50 mg PO DAILY RF: 0 PNV cmb#95-ferrous fumarate-FA [] 28 mg iron- 800 mcg Tablet 1 tablet PO DAILY RF: 0 Zyrtec 10 mg Capsule 10 mg PO DAILY RF: 0 Vitamin D3 100 mcg (4,000 unit) Capsule 100 mcg PO DAILY RF: 0 albuterol sulfate [ProAir HFA] 90 mcg/actuation HFA aerosol inhaler 2 puff INHALATION Q4-6H PRN (Reason: shortness of breath or wheezing) Qty: 25.5 RF: 1 Discontinued aspirin [Adult Low Dose Aspirin] 81 mg tablet,delayed release (DR/EC) 81 mg PO DAILY RF: 0 Date of admission: 11/21/19 21:39 Primary Care Provider: Chicho Saenz Admitting Provider: Ricarda Gonzales Attending physician on admission: Ricarda Gonzales
== END 2019-11-25 13:24 | disposition home or self-care (01) | DRG 807 ==
LOC: ANHLDR 11-22 13:28 → ANHOB2 11-23 11:47
PROVIDERS: Advanced Practice Midwife; Admitting Provider Obstetrics & Gynecology; PCP Internal Medicine; Visit Provider Obstetrics & Gynecology
DX: O13.4 Gestational [pregnancy-induced] hypertension without significant proteinuria, complicating childbirth (principal); Z37.0 Single live birth; O42.92 Full-term premature rupture of membranes, unspecified as to length of time between rupture and onset of labor; O70.1 Second degree perineal laceration during delivery; Z3A.37 37 weeks gestation of pregnancy
CPT/HCPCS: 36415; 80053; 84550; 85014; 85018; 85025; 86592; 86850; 86900; 86901; 88307; A9270; J0131; J0290; J2405; J2590; J2795; J3010; J7030; J7120

== ENCOUNTER 2019-12-04 10:50 | Outpatient (RCR) | payer OTHER, SELFPAY ==
--- NOTE | 2019-12-04 11:55 | PC.NURSE ---
IN 1100 OUT 1150 HISTORY: Pt. delivered at [facility] at 37 weeks. had no complications after delivery. Mother had no complications after delivery. Infant is now 11 days old. Infant appears to be well cared for. Infant has been seen by ICP as scheduled. Infant last seen by ICP at 1 week Mother reports: Mother did not latch while in the hospital. Mother attempted each feeding, then supplemented and pumped. was readmitted for jaundice, she did not put to breast, she pumped and bottle fed. Mother has continued to pump and bottle feed only. She has made 1-2 attempts since home. Mother is concerned if he does breastfeed she will not know how much he is feeding. Discussed signs of adequate breastmilk intake. When she has attempted he was on and off and fussy with attempts, she will quickly move on to bottle feeding. Mother is pumping regularly using a [employer] double electric pump. Mother pumps 5-10 oz per session. is eagerly bottle feeding. Mother has a HX of IVF and thyroid issues. Mother wishes: To improve latch and feed without discomfort. Currently at 8 wets per day and 3 yellow seedy stools per day. Will freq. skip a day without stool. weight: 6#8 Discharge weight: 6#6 Last Weight: 6#11 at 1 week Pre feeding weight: 3252 Post feeding weight: 3282-- Switched breast 3301 OBSERVATION: Mother uses cradle to initiate latch without shield. makes multiple eager efforts to latch and is unable to draw nipple in. Each attempt he will pinch down and pull at nipple. Offered and explained the nipple shield. Mother states she used the shield while in the hospital. Discussed nipple shield precautions and possible complications. Instructions given on application and cleaning of shield. Patient able to return demonstration on proper application of shield. Suggested to massage at breast to start milk flow, and to express milk onto shield before attempting latch. Reviewed positioning/alignment in cross cradle, holding breast in U hold and guided asymmetrical latch on. Discussed the rational for each. Within a few attempts, was able to latch correctly. Advised mother to continue to hold breast in U hold during entire feeding. Infant nursed eagerly, with steady draws and frequent swallowing noted. Reviewed signs of a correct latch, effective nursing and suck swallow ratio. was able to maintain latch without discomfort to mother. Discussed how holding breast assisted with increased intake and assisted with maintaining deep latch. Mother quickly reported she could feel was latched deeply and had minimal discomfort. When infant released latch, nipple was long and rounded. Reviewed weaning techniques from shield. Suggested mother allow infant to feed with shield for several days before beginning to wean to allow both to be comfortable with . Discussed infant may want to feed more freq., which is normal with switching from bottle to . Demonstrated how to adjust latch more deeply while feeding. Mother was able to independently latch infant deeply when switching to other breast. Worked with adjusting latch while feeding. Reviewed nipple care. PLAN: Mother will follow above feeding plan using techniques for deeper latch with nipple shield. Advised mother to allow to sleep for 3 hours during the day and up to 1- 5 hour sleep period at night before waking to feed. Advised allowing to wake for feeding may assist with being more awake and making eager attempts to latch, preventing sleepy latching and on and off attempts for 10-15 minutes. Suggested mother allow to empty one breast before switching, then comfort pumping other breast if needed. Stressed infant has good weight gain and output, with good i
== END 2019-12-21 09:09 | disposition home or self-care (01) ==
LOC: ANHOBOP 10:50
PROVIDERS: PCP Internal Medicine; Visit Provider Pediatrics
DX: Z39.1 Encounter for care and examination of lactating mother (principal)
CPT/HCPCS: 99212; G0463

== ENCOUNTER 2024-01-15 10:30 | Outpatient (CLI) | payer OTHER, SELFPAY ==
--- NOTE | ~2024-01-15 | US_ITS ---
US pelvic complete DATE: 01/15/2024 10:54 INDICATION: Excessive abnormal uterine bleeding since July 2023 TECHNIQUE: Real-time imaging via transabdominal approach; suboptimal distention of the urinary bladde r COMPARISON: 09/13/2019 and Limited abdominal ultrasound 12/26/2016 pelvic ultrasound FINDINGS: The uterus measures 8.8 cm sagittal, 3.6 cm AP and 5.5 cm transverse dimension. The central endometrial echo complex measures 5 mm AP dimension. Right ovary measures 3.1 x 2.1 x 2.2 cm, with normal low impedance arterial flow. The left ovary measures 2.7 x 2.0 x 2.9 cm, with normal low impedance arterial flow. IMPRESSION: No significant abnormality Reviewed, dictated and finalized at [facility] Reviewed, dictated and finalized at [facility] [employer] IMPRESSION: No significant abnormality
== END 2024-01-15 10:31 | disposition home or self-care (01) ==
PROVIDERS: PCP Nurse Practitioner Obstetrics & Gynecology; Visit Provider Nurse Practitioner Obstetrics & Gynecology
DX: N93.9 Abnormal uterine and vaginal bleeding, unspecified (principal)
CPT/HCPCS: 76856